=== PATIENT | male | born 1975 | race Caucasian/White ===

== ENCOUNTER 2022-11-03 13:40 | Emergency (ER) | payer OTHER ==
[~2022-11-03] VITALS: Ht 180.3 cm; Wt 102.0 kg
[2022-11-03 16:31] VITALS: BP 124/90
[2022-11-03] MEDS ORDERED: HYDROcodone-ACET 5/325MG TAB PO ONE (16:45)
== END 2022-11-03 16:43 | disposition home or self-care (01) ==
LOC: EDBD 13:40 → EEVIPCON 13:40 → ER 13:40
DX: S62.325A Displaced fracture of shaft of fourth metacarpal bone, left hand, initial encounter for closed fracture (principal); X58.XXXA Exposure to other specified factors, initial encounter; Y93.89 Activity, other specified; Y92.89 Other specified places as the place of occurrence of the external cause; Y99.8 Other external cause status
CPT/HCPCS: 73130